=== PATIENT | male | born 1935 | race Caucasian/White ===

== ENCOUNTER → 2019-08-08 | Outpatient (CLI) | payer OTHER | LOC: HYPER 10:08 | DX: T81.89XA Other complications of procedures, not elsewhere classified, initial encounter (principal); L02.215 Cutaneous abscess of perineum; R60.0 Localized edema; H91.90 Unspecified hearing loss, unspecified ear; R21 Rash and other nonspecific skin eruption; Z95.0 Presence of cardiac pacemaker; Y83.8 Other surgical procedures as the cause of abnormal reaction of the patient, or of later complication, without mention of misadventure at the time of the procedure; Y92.89 Other specified places as the place of occurrence of the external cause ==